=== PATIENT | male | born 1990 | race Caucasian/White ===

== ENCOUNTER 2019-05-31 20:07 | Emergency (ER) | payer MEDICAID ==
[~2019-05-31] VITALS: Ht 180.3 cm; Wt 77.3 kg
--- NOTE | 2019-05-31 20:33 | NUR ---
Patient is ambulatory from Triage. Patient placed in Room 23. Patient changed into a gown.
--- NOTE | 2019-05-31 20:42 | NUR ---
PT VERIFIED THAT I COULD EXPLAIN PLAN OF CARE TO SISTER, DAV MILLER. DAV UNDERSTOOD PLAN OF CARE AND VISITING HOURS. STATED PT IN LAST YEAR HAS BEEN ACTING UNUSUAL AND HALLUCINATING. FOR EXAMPLE, FRIENDS WERE TALKING BAD ABOUT HIM BUT CAN SELF REALIZE THAT IT ACTUALLY WAS NOT TRUE. PT BEGAN CUTTING IN FEBRUARY, ISOLATING HIMSELF TO ROOM. SISTER IS WORRIED ABOUT PT PLAN TO HARM SELF USING "BOMB" AND WORRIED "HE WILL PLAN TO HURT OTHER PEOPLE WELL." PHONE NUMBER [phone]
--- NOTE | 2019-05-31 20:47 | NUR ---
SISTER, DAV MILLER, PHONE NUMBER [phone]
--- NOTE | 2019-05-31 21:03 | NUR ---
Patient is awake, resting quietly. Patient states some anxiety is present.
[2019-05-31 22:20] LABS: CLARITY,URINE CLEAR (Clear); COLOR,URINE YELLOW (Yellow); GLUCOSE, URINE NEGATIVE (Neg); KETONES,URINE NEGATIVE (Neg); LEUKOCYTE ESTERASE ,URINE NEGATIVE (Neg); NITRITES, URINE NEGATIVE (Neg); OCCULT BLOOD,URINE TRACE-INTACT (Neg); PROTEIN,URINE NEGATIVE (Neg); UROBILINOGEN,URINE 0.2 E.U/dL (0.2-1.0)
[2019-05-31 22:21] LABS: BASOPHILS # (AUTO) 0.1 X10'3 (0-0.2); BASOPHILS % (AUTO) 1.2 % (0-1); EOSINOPHILS # (AUTO) 0.2 X10'3 (0-0.9); EOSINOPHILS % (AUTO) 2.3 % (0-6); HEMATOCRIT 47.1 % (42.0-52.0); HEMOGLOBIN 15.6 g/dl (14.0-17.9); LYMPHOCYTES # (AUTO) 2.3 X10'3 (1.1-4.8); LYMPHOCYTES % (AUTO) 33.4 % (21-51); MEAN CORPUSCULAR HEMOGLOBIN 28.6 PG (27.0-31.0); MEAN CORPUSCULAR HGB CONC 33.1 g/dL (33.0-36.5); MEAN CORPUSCULAR VOLUME 86.5 FL (78-98); MEAN PLATELET VOLUME 8.3 FL (7.4-10.4); MONOCYTES # (AUTO) 0.7 X10'3 (0-0.9); MONOCYTES % (AUTO) 10.5 % (2-12); NEUTROPHILS # (AUTO) 3.6 X10'3 (1.8-7.7); NEUTROPHILS % (AUTO) 52.6 % (42-75); PLATELET COUNT 241 X10'3 (140-440); RED BLOOD COUNT 5.44 X10'6 (4.70-6.10); RED CELL DISTRIBUTION WIDTH 14.2 % (11.5-14.5); WHITE BLOOD COUNT 6.9 X10'3 (4.5-11.0)
[2019-05-31 22:23] LABS: UA COLLECTION TYPE VOIDED
[2019-05-31 22:31] LABS: BACTERIA,URINE NONE SEEN /HPF (Neg); RBC,URINE 0-2 /HPF (0-2); SQUAMOUS EPITHELIAL CELL,UR NONE SEEN /LPF (FEW); WBC,URINE NONE SEEN /HPF (0-4)
[2019-05-31 22:37] LABS: URINE AMPHETAMINE SCREEN NEGATIVE (Neg); URINE BARBITUATE SCREEN NEGATIVE (Neg); URINE BENZODIAZEPINES SCREEN NEGATIVE (Neg); URINE CANNABINOID SCREEN NEGATIVE (Neg); URINE COCAINE SCREEN POSITIVE (Neg); URINE METHADONE SCREEN NEGATIVE (Neg); URINE OPIATE SCREEN NEGATIVE (Neg); URINE PHENCYCLIDINE SCREEN NEGATIVE (Neg)
[2019-05-31 22:42] LABS: ALANINE AMINOTRANSFERASE 23 U/L (12-78); ALBUMIN 3.9 G/DL (3.4-5.0); ALBUMIN/GLOBULIN RATIO 1.1 (1.1-1.5); ALKALINE PHOSPHATASE 66 IU/L (46-116); ANION GAP 5 (8-16); ASPARTATE AMINO TRANSFERASE 24 U/L (10-37); BILIRUBIN,TOTAL 0.3 MG/DL (0.1-1.0); BLOOD UREA NITROGEN 12 MG/DL (7-18); BUN/CREATININE RATIO 10.6 (5.4-32.0); CALCIUM 8.8 MG/DL (8.5-10.1); CHLORIDE 105 MMOL/L (99-107); CREATININE 1.13 MG/DL (0.60-1.10); ETHANOL < 0.010 GM/DL (0.0-0.010); GLUCOSE 99 MG/DL (70-104); POTASSIUM 4.1 MMOL/L (3.5-5.1); SODIUM 144 MMOL/L (135-145); TOTAL CARBON DIOXIDE 33.7 MMOL/L (24-32); TOTAL PROTEIN 7.3 G/DL (6.4-8.2); eGFR 76 ML/MIN
[2019-05-31 22:43] LABS: ACETAMINOPHEN < 2.0 UG/ML (10-30)
--- NOTE | 2019-05-31 23:01 | NUR ---
Patient is wide awake. Low fowlers in bed. States he is not sleepy, mild anxiety present. This senior medical writer spoke with ER . Trazadone 50 mg ordered, MR X1 PRN.
[2019-05-31] MEDS ORDERED: traZODone 50mg tablet PO ONE (23:20)
--- NOTE | 2019-06-01 00:48 | NUR ---
Patient is sleeping quietly on his right side.
--- NOTE | 2019-06-01 05:55 | NUR ---
Patient is sleeping on his right side in bed.
--- NOTE | 2019-06-01 05:56 | NUR ---
Patient sleeping on his left side in bed.
--- NOTE | 2019-06-01 06:45 | NUR ---
Patient is sleeping supine in bed, respirations are even and nonlabored.
--- NOTE | 2019-06-01 09:00 | NUR ---
Patient ate breakfast and is now sleeping on his left side. Respirations are even and nonlabored.
[2019-06-01] MEDS ORDERED: NO HOME MEDS PO (09:24)
[2019-06-01] MEDS ORDERED: NO HOME MEDS PF (09:35)
[2019-06-01 10:44] VITALS: BP 103/62
[2019-06-01] MEDS ORDERED: traZODone 50mg tablet PO SCH (20:00)
== END 2019-06-01 12:27 | disposition home or self-care (01) ==
LOC: ER 20:09
DX: R45.851 Suicidal ideations (principal); F29 Unspecified psychosis not due to a substance or known physiological condition; F32.9 Major depressive disorder, single episode, unspecified; F17.210 Nicotine dependence, cigarettes, uncomplicated; F14.90 Cocaine use, unspecified, uncomplicated; Z72.89 Other problems related to lifestyle
CPT/HCPCS: 36415; 80053; 80178; 80305; 80320; 80329; 81001; 84443; 85025; 99283